=== PATIENT | male | born 1980 | race Caucasian/White ===

== ENCOUNTER 2016-09-10 17:21 | Emergency (ER) | payer SELFPAY | END 2016-09-10 17:42 | disposition left against medical advice (07) | LOC: ER1 17:21 | DX: Z53.21 Procedure and treatment not carried out due to patient leaving prior to being seen by health care provider (principal) ==

== ENCOUNTER 2016-09-11 22:58 | Emergency (ER) | payer OTHER ==
[2016-09-12 04:17] LABS: BUN/CREATININE RATIO 9 (0-10)
[2016-09-12 04:53] LABS: HEMOGLOBIN 14.8 gm/dl (14.0-17.5); RED BLOOD COUNT 4.86 M/UL (4.20-5.50); WHITE BLOOD COUNT 7.9 K/UL (4.5-11.0)
== END 2016-09-12 05:30 | disposition home or self-care (01) ==
LOC: ER1 22:58
PROVIDERS: Physician Assistant
DX: L03.115 Cellulitis of right lower limb (principal); R55 Syncope and collapse; N20.9 Urinary calculus, unspecified; N28.89 Other specified disorders of kidney and ureter; F17.210 Nicotine dependence, cigarettes, uncomplicated; Z90.49 Acquired absence of other specified parts of digestive tract; Z88.0 Allergy status to penicillin; Z88.5 Allergy status to narcotic agent
CPT/HCPCS: 36415; 80053; 85025; 93005; 96360; 99283